=== PATIENT | male | born 1975 | race Caucasian/White ===

== ENCOUNTER 2018-01-18 12:27 | Inpatient (IN) | payer BC, OTHER ==
[~2018-01-18 12:27] MED LIST: ISOVUE-370 76%-LOCM 1 ML ONE
[2018-01-18 12:47] LABS: Hemoglobin 14.2 g/dL (14.0-18.0); Mean Corpuscular HGB CONC 32.2 g/dL (32.0-36.0); Mean Corpuscular Hemoglobin 29.5 pg (27.0-31.0); Mean Corpuscular Volume 91.6 fL (78.0-98.0); Platelet Count 328 thou/uL (130-400); RBC Distribution Width 11.7 % (11.5-14.5); White Blood Cell (WBC) Count 25.7 thou/uL (4.8-10.8)
[2018-01-18 12:52] LABS: INR-International Normal Ratio 1.2; PTT 24.2 SEC (22.9-36.1); Prothrombin Time 14.8 SEC (12.0-14.7)
[2018-01-18] MEDS ORDERED: Fentanyl 100 MCG/2 ML VIAL ONE ×6 (12:54→13:25)
[2018-01-18] MEDS ORDERED: Fentanyl BOLUS 250 ML IVPB PRN ×2 (12:55→14:38)
[2018-01-18 12:58] LABS: ALT (SGPT) 27 U/L (8-55); AST (SGOT) 34 U/L (5-34); Albumin 3.5 g/dL (3.5-5.0); Alkaline Phosphatase 83 U/L (40-150); Anion Gap 13 mmol/L (10-20); BUN (Urea Nitrogen) 21 mg/dL (8.9-20.6); Bilirubin, Total 0.4 mg/dL (0.2-1.2); Calc. Creatinine Clearance 0 mL/min (70-130); Calcium 8.2 mg/dL (7.8-10.44); Carbon Dioxide 17 mmol/L (22-29); Chloride 113 mmol/L (98-107); Estimated GFR-MDRD 61; Globulin 2.5 g/dL (2.4-3.5); Glucose 164 mg/dL (70-105); Potassium 4.4 mmol/L (3.5-5.1); Sodium 139 mmol/L (136-145)
[2018-01-18 13:11] LABS: Band 12 % (5-11); Eosinophils 2 % (0-10); Lymphocytes 9 % (21-51); MDiff Complete? YES; Monocytes 3 % (0-10); Neutrophil 74 % (42-75); PLT Morphology Comment Appears Adequate; RBC Morphology Normal
[2018-01-18] MEDS ORDERED: Norepinephrine 4 MG/4 ML VIAL ONE (13:15)
[2018-01-18] MEDS ORDERED: Vecuronium 10 MG VIAL ONE ×3 (13:16→18:05)
[2018-01-18] MEDS ORDERED: Norepinephrine 4 MG in Dextrose 5% in Water 246 ML IVPB PRN (13:17)
[2018-01-18] MEDS ORDERED: Midazolam HCl 2 mg/2 ml Vial ONE (13:25)
[2018-01-18] MEDS ORDERED: Calcium Chloride 1 GM/10 ML Abboject SYRINGE ONE ×3 (13:50→16:27)
[2018-01-18] MEDS ORDERED: Sodium Bicarb 50 MEQ/50 ML Abboject 8.4% SYRINGE ONE ×2 (13:50→14:00)
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
[2018-01-18] MEDS ORDERED: Neomycin-Polymyxin 1 ML AMP ONE (14:01)
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
[2018-01-18] MEDS ORDERED: Gentamicin 80 MG/2 ML VIAL ONE (14:11)
[2018-01-18] MEDS ORDERED: Dextrose 50% Abboject 50 ML SYRINGE SLOW IVP PRN (14:24)
[2018-01-18] MEDS ORDERED: Dextrose 5% in Water 1,000 ML IV PRN (14:24)
[2018-01-18] MEDS ORDERED: Ondansetron ODT 4 MG TAB PO PRN (14:24)
[2018-01-18] MEDS ORDERED: Ventilator Sedation Protocol 1 EACH FS ONE (14:31)
[2018-01-18] MEDS ORDERED: Propofol BOLUS 1,000 MG/100 ML VIAL IV PRN (14:38)
[2018-01-18] MEDS ORDERED: Lorazepam 2 MG/ML VIAL SLOW IVP PRN (14:38)
[2018-01-18] MEDS ORDERED: Fentanyl CADD 250 ML IVPB SCH (14:38)
[2018-01-18] MEDS ORDERED: fentaNYL Citrate/PF 2,000 MCG in Sodium Chloride 0.9% 60 ML IV SCH (14:38)
[2018-01-18] MEDS ORDERED: DISCONTINUE PREVIOUS NARCOTIC PAIN MEDICATIONS AND BENZODIAZEPINES FS SCH (14:38)
[2018-01-18] MEDS ORDERED: Propofol 1,000 MG/100 ML VIAL IV PRN (14:38)
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
[2018-01-18] MEDS ORDERED: Heparin 5,000 UNITS/ML VIAL ONE (15:55)
[2018-01-18] MEDS ORDERED: Protamine Sulfate 50 MG/5 ML VIAL ONE (16:20)
[2018-01-18] MEDS ORDERED: Heparin 10,000 UNITS/1 ML VIAL ONE (16:20)
[2018-01-18] MEDS ORDERED: Heparin 10,000 UNITS/ 10 ML VIAL ONE (16:27)
[2018-01-18] MEDS ORDERED: PHENYLEPHRINE-NS 100 MCG/ML 10 ML SYRINGE ONE (16:27)
[2018-01-18] MEDS ORDERED: Sodium Bicarb 50 MEQ/50 ML VIAL ONE (16:27)
[2018-01-18] MEDS ORDERED: Propofol 1,000 MG/100 ML VIAL IV ONE (18:46)
[2018-01-18 18:58] LABS: #Lymphocytes 1.6 thou/uL (1.20-3.40); #Monocytes 1.9 thou/uL (0.11-0.59); #Neutrophils 13.7 thou/uL (1.40-6.50); %Basophils 0.1 % (0.0-1.0); %Eosinophils 0.2 % (0.0-10.0); %Lymphocytes 9.3 % (21.0-51.0); %Monocytes 10.9 % (0.0-10.0); %Neutrophils 79.5 % (42.0-75.0); Mean Corpuscular HGB CONC 33.4 g/dL (32.0-36.0); Mean Corpuscular Hemoglobin 29.9 pg (27.0-31.0); Mean Corpuscular Volume 89.4 fL (78.0-98.0); Mean Platelet Volume 7.3 fL (7.4-10.4); Platelet Count 242 thou/uL (130-400); RBC Distribution Width 13.1 % (11.5-14.5); Red Blood Cell (RBC) Count 4.01 mill/uL (4.70-6.10); White Blood Cell (WBC) Count 17.2 thou/uL (4.8-10.8)
[2018-01-18 19:05] LABS: INR-International Normal Ratio 1.2; PTT 27.6 SEC (22.9-36.1); Prothrombin Time 15.3 SEC (12.0-14.7)
[2018-01-18 19:25] LABS: Lactic Acid 6.8 mmol/L (0.5-2.2)
[2018-01-18] MEDS: fentaNYL Citrate/PF 2,000 MCG in Sodium Chloride 0.9% 60 ML IV SCH (19:47)
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
[2018-01-18] MEDS: Lactated Ringer's 1,000 ML IV SCH ×2 (20:01→21:41)
[2018-01-18 20:33] LABS: Actual Bicarbonate (HCO3a) 21.5 mEq/L (22-28); Base Excess (BEa) -4.2 mEq/L (-2.0 to +3.0); CO2 Tension 41.8 mmHg (35.0-45.0); Calcium, Ionized 1.21 mmol/L (1.12-1.30); Carboxyhemoglobin (COHb) 1.1 gm% (0.0-3.0); Hemoglobin (Hb) 12.1 g/dL (14.0-18.0); O2 Tension (PaO2) 89.4 mmHg (80.0-100.0); Potassium - ABG Lab 4.73 mmol/L (3.70-5.30); pH, Arterial 7.33 (7.35-7.45)
[2018-01-18 20:34] LABS: Puncture Site ALINE
[2018-01-18] MEDS: Famotidine/PF 20 mg/2ml Vial SLOW IVP SCH (20:55)
[2018-01-18] MEDS: Ondansetron HCl/PF 4 MG/2 ML Vial IVP PRN (20:55)
[2018-01-18] MEDS ORDERED: Enoxaparin Sodium 30 MG/0.3 ML SYRINGE SC SCH (21:00)
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
[2018-01-18] MEDS: Enoxaparin Sodium 30 MG/0.3 ML SYRINGE SC SCH (23:04)
[2018-01-18] MEDS ORDERED: Lactated Ringer's 500 ML IV SCH (23:59)
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
[2018-01-19] MEDS: Acetaminophen 1,000 MG in Premix Bag 1 BAG IVPB SCH ×2 (00:59→07:51)
[2018-01-19] MEDS: Lactated Ringer's 1,000 ML IV SCH (01:03)
[2018-01-19 04:46] LABS: ALT (SGPT) 45 U/L (8-55); AST (SGOT) 161 U/L (5-34); Alkaline Phosphatase 43 U/L (40-150); Anion Gap 17 mmol/L (10-20); BUN (Urea Nitrogen) 23 mg/dL (8.9-20.6); Bilirubin, Total 1.1 mg/dL (0.2-1.2); Calc. Creatinine Clearance 100 mL/min (70-130); Carbon Dioxide 21 mmol/L (22-29); Chloride 111 mmol/L (98-107); Estimated GFR-MDRD 45; Globulin 1.7 g/dL (2.4-3.5); Glucose 121 mg/dL (70-105); Potassium 4.4 mmol/L (3.5-5.1); Protein, Total 4.7 g/dL (6.0-8.3); Sodium 145 mmol/L (136-145)
[2018-01-19 05:16] LABS: CK (CPK) 11349 U/L (30-200)
[2018-01-19 06:40] LABS: Actual Bicarbonate (HCO3a) 21.8 mEq/L (22-28); Base Excess (BEa) -2.6 mEq/L (-2.0 to +3.0); CO2 Tension 35.9 mmHg (35.0-45.0); Calcium, Ionized 1.13 mmol/L (1.12-1.30); Carboxyhemoglobin (COHb) 0.8 gm% (0.0-3.0); O2 Tension (PaO2) 118.6 mmHg (80.0-100.0); Potassium - ABG Lab 4.56 mmol/L (3.70-5.30)
[2018-01-19 06:41] LABS: ALV-art Gradient 121.725 (0-20); Puncture Site ALINE
[2018-01-19 07:18] LABS: #Lymphocytes 1.6 thou/uL (1.20-3.40); #Monocytes 0.9 thou/uL (0.11-0.59); %Basophils 0.3 % (0.0-1.0); %Eosinophils 0.2 % (0.0-10.0); %Monocytes 8.6 % (0.0-10.0); %Neutrophils 75.8 % (42.0-75.0); Hemoglobin 8.7 g/dL (14.0-18.0); Mean Corpuscular Hemoglobin 29.8 pg (27.0-31.0); Mean Corpuscular Volume 87.6 fL (78.0-98.0); Mean Platelet Volume 7.2 fL (7.4-10.4); Platelet Count 166 thou/uL (130-400); RBC Distribution Width 13.6 % (11.5-14.5); Red Blood Cell (RBC) Count 2.91 mill/uL (4.70-6.10); White Blood Cell (WBC) Count 10.6 thou/uL (4.8-10.8)
[2018-01-19] MEDS: fentaNYL Citrate/PF 2,000 MCG in Sodium Chloride 0.9% 60 ML IV SCH (07:36)
[2018-01-19] MEDS: Famotidine/PF 20 mg/2ml Vial SLOW IVP SCH ×2 (07:51→20:16)
[2018-01-19] MEDS ORDERED: Enoxaparin Sodium 30 MG/0.3 ML SYRINGE SC SCH (09:00)
[2018-01-19] MEDS: Sodium Bicarbonate 150 MEQ in Dextrose 5% in Water 1,000 ML IV SCH ×3 (09:07→23:12)
[2018-01-19] MEDS ORDERED: Albumin 5% 500 ML ONE (09:17)
[2018-01-19] MEDS: Enoxaparin Sodium 30 MG/0.3 ML SYRINGE SC SCH ×2 (09:27→20:28)
[2018-01-19] MEDS ORDERED: diphenhydrAMINE 50 MG/ML VIAL IVP PRN (10:21)
[2018-01-19] MEDS ORDERED: Promethazine HCl 25 MG/ML VIAL IM PRN (10:21)
[2018-01-19] MEDS ORDERED: diphenhydrAMINE 25 MG CAP PO PRN (10:21)
[2018-01-19] MEDS ORDERED: diphenhydrAMINE 50 MG/ML VIAL IM PRN (10:21)
[2018-01-19] MEDS ORDERED: Naloxone HCl 0.4 mg/ml Vial IV PRN (10:21)
[2018-01-19] MEDS ORDERED: Communication Order-Pharmacy FS SCH ×2 (10:30)
[2018-01-19] MEDS: CEFAZOLIN/Water 2 GM/20 ML SYRINGE SLOW IVP SCH ×2 (11:20→20:16)
[2018-01-19] MEDS: Acetaminophen 500 MG TAB PO SCH ×3 (11:20→22:04)
[2018-01-19] MEDS: cefTRIAXone\\ROCEPHIN 2 GM in Sodium Chloride 0.9% 100 ML IVPB SCH (11:21)
[2018-01-19] MEDS: HYDROmorphone 10 mg/100 ml CADD IVPB PRN ×2 (11:28→23:38)
[2018-01-19] MEDS: Ondansetron HCl/PF 4 MG/2 ML Vial IVP PRN (17:42)
[2018-01-20] MEDS: Acetaminophen 500 MG TAB PO SCH ×4 (04:06→23:36)
[2018-01-20] MEDS: CEFAZOLIN/Water 2 GM/20 ML SYRINGE SLOW IVP SCH (04:06)
[2018-01-20] MEDS: Sodium Bicarbonate 150 MEQ in Dextrose 5% in Water 1,000 ML IV SCH (04:11)
[2018-01-20 04:32] LABS: #Lymphocytes 1.4 thou/uL (1.20-3.40); #Monocytes 0.6 thou/uL (0.11-0.59); #Neutrophils 7.3 thou/uL (1.40-6.50); %Basophils 0.3 % (0.0-1.0); %Eosinophils 0.2 % (0.0-10.0); %Lymphocytes 14.9 % (21.0-51.0); %Monocytes 6.4 % (0.0-10.0); %Neutrophils 78.2 % (42.0-75.0); Hemoglobin 7.6 g/dL (14.0-18.0); Mean Corpuscular HGB CONC 33.1 g/dL (32.0-36.0); Mean Corpuscular Hemoglobin 29.8 pg (27.0-31.0); Mean Corpuscular Volume 90.1 fL (78.0-98.0); Mean Platelet Volume 7.3 fL (7.4-10.4); Platelet Count 134 thou/uL (130-400); RBC Distribution Width 13.2 % (11.5-14.5); Red Blood Cell (RBC) Count 2.55 mill/uL (4.70-6.10); White Blood Cell (WBC) Count 9.3 thou/uL (4.8-10.8)
[2018-01-20 04:41] LABS: Anion Gap 11 mmol/L (10-20); BUN (Urea Nitrogen) 15 mg/dL (8.9-20.6); Calc. Creatinine Clearance 138 mL/min (70-130); Calcium 7.9 mg/dL (7.8-10.44); Carbon Dioxide 35 mmol/L (22-29); Chloride 99 mmol/L (98-107); Estimated GFR-MDRD 66; Glucose 145 mg/dL (70-105); Magnesium 1.6 mg/dL (1.6-2.6); Phosphorus 2.3 mg/dL (2.3-4.7); Potassium 3.5 mmol/L (3.5-5.1); Sodium 141 mmol/L (136-145)
[2018-01-20] MEDS ORDERED: Fentanyl 250 MCG/5 ML VIAL ONE (07:32)
[2018-01-20] MEDS ORDERED: Magnesium Sulfate 3 GM in Sodium Chloride 0.9% 100 ML IVPB SCH (08:00)
[2018-01-20] MEDS ORDERED: Lactated Ringer's 1,000 ML IV SCH (08:15)
[2018-01-20] MEDS ORDERED: Potassium Phosphate 30 MMOL in Sodium Chloride 0.9% 500 ML IVPB SCH (09:00)
[2018-01-20] MEDS ORDERED: HYDROmorphone 2 MG/ML VIAL ONE (09:55)
[2018-01-20] MEDS: Sodium Chloride 0.9% 1,000 ML IV SCH ×3 (11:21→20:33)
[2018-01-20] MEDS: Famotidine/PF 20 mg/2ml Vial SLOW IVP SCH ×2 (11:28→20:33)
[2018-01-20] MEDS: Enoxaparin Sodium 30 MG/0.3 ML SYRINGE SC SCH ×2 (11:29→20:33)
[2018-01-20] MEDS ORDERED: Magnesium Sulfate 3 GM, IV Admixture Fee-Chemo 1 UNITS in Sodium Chloride 0.9% 100 ML IVPB SCH (11:30)
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
[2018-01-20] MEDS: cefTRIAXone\\ROCEPHIN 2 GM in Sodium Chloride 0.9% 100 ML IVPB SCH (11:44)
[2018-01-20] MEDS ORDERED: Furosemide 40 MG/4 ML VIAL SLOW IVP SCH (12:15)
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
--- NOTE | 2018-01-20 12:26 | RAD ---
INTRAOPERATIVE FLUOROSOCPIC IMAGES RIGHT TIBIA AND FIBULA: DATE: 01/20/18. HISTORY: Debridement. FINDINGS/IMPRESSION: Two fluoroscopic images of the lower right tibia and fibula are provided. Fluoroscopic guidance was provided for Dr. Song. Fracture deformities of the right tibia and fibula are incompletely imag ed and better evaluated on the study of 01/18/18. Correlation with intraoperative findings is suggest ed. POS: HARISH
[2018-01-20] MEDS ORDERED: Dexamethasone 20 MG/5 ML VIAL ONE (15:49)
[2018-01-20] MEDS ORDERED: Ondansetron HCl/PF 4 MG/2 ML Vial ONE (15:49)
[2018-01-20] MEDS ORDERED: PHENYLEPHRINE-NS 100 MCG/ML 10 ML SYRINGE ONE (15:49)
[2018-01-20] MEDS ORDERED: PROPOFOL 200 MG/20 ML VIAL ONE (15:49)
[2018-01-20] MEDS ORDERED: Lidocaine 1% PF 5 ML VIAL ONE (15:49)
[2018-01-20] MEDS: Ascorbic Acid 500 mg Chewable Tablet PO SCH ×2 (17:04→20:32)
[2018-01-20] MEDS: Ferrous Sulfate 325 MG TAB PO SCH ×2 (17:04→17:08)
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
[2018-01-20] MEDS: HYDROmorphone 10 mg/100 ml CADD IVPB PRN (21:33)
[2018-01-21] MEDS: Sodium Chloride 0.9% 1,000 ML IV SCH ×5 (01:38→22:01)
[2018-01-21] MEDS: Acetaminophen 500 MG TAB PO SCH ×4 (04:23→22:01)
[2018-01-21 04:42] LABS: #Lymphocytes 0.8 thou/uL (1.20-3.40); #Monocytes 0.6 thou/uL (0.11-0.59); #Neutrophils 8.8 thou/uL (1.40-6.50); %Eosinophils 0.1 % (0.0-10.0); %Lymphocytes 7.8 % (21.0-51.0); %Monocytes 5.9 % (0.0-10.0); %Neutrophils 86.2 % (42.0-75.0); Hemoglobin 7.7 g/dL (14.0-18.0); Mean Corpuscular HGB CONC 32.7 g/dL (32.0-36.0); Mean Corpuscular Hemoglobin 29.7 pg (27.0-31.0); Mean Corpuscular Volume 90.7 fL (78.0-98.0); Mean Platelet Volume 7.2 fL (7.4-10.4); PLT Morphology Comment Appears Decreased; Platelet Count 119 thou/uL (130-400); RBC Distribution Width 13.4 % (11.5-14.5); RBC Morphology Normal; Red Blood Cell (RBC) Count 2.58 mill/uL (4.70-6.10); White Blood Cell (WBC) Count 10.2 thou/uL (4.8-10.8)
[2018-01-21 04:45] LABS: Anion Gap 9 mmol/L (10-20); BUN (Urea Nitrogen) 12 mg/dL (8.9-20.6); Calc. Creatinine Clearance 199 mL/min (70-130); Carbon Dioxide 29 mmol/L (22-29); Chloride 105 mmol/L (98-107); Estimated GFR-MDRD Greater than 90; Glucose 116 mg/dL (70-105); Magnesium 2.1 mg/dL (1.6-2.6); Phosphorus 1.7 mg/dL (2.3-4.7); Potassium 3.7 mmol/L (3.5-5.1); Sodium 139 mmol/L (136-145)
[2018-01-21] MEDS ORDERED: Potassium Phosphate 30 MMOL, Magnesium Sulfate 2 GM in Sodium Chloride 0.9% 500 ML IVPB SCH (05:30)
[2018-01-21 06:14] LABS: CK (CPK) 11180 U/L (30-200)
[2018-01-21] MEDS: Ascorbic Acid 500 mg Chewable Tablet PO SCH ×2 (09:40→20:17)
[2018-01-21] MEDS: Ferrous Sulfate 325 MG TAB PO SCH ×2 (09:40→17:37)
[2018-01-21] MEDS: Famotidine/PF 20 mg/2ml Vial SLOW IVP SCH ×2 (09:41→20:18)
[2018-01-21] MEDS: Enoxaparin Sodium 30 MG/0.3 ML SYRINGE SC SCH ×2 (09:41→20:25)
[2018-01-21] MEDS ORDERED: traMADol HCl 50 MG TAB PO PRN (11:27)
[2018-01-21] MEDS ORDERED: Furosemide 20 MG/2 ML VIAL SLOW IVP SCH (11:30)
[2018-01-21] MEDS ORDERED: Polyethylene Glycol 3350 17 GM Packet PO SCH (12:00)
[2018-01-21] MEDS: cefTRIAXone\\ROCEPHIN 2 GM in Sodium Chloride 0.9% 100 ML IVPB SCH (12:23)
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
[2018-01-21] MEDS: Gabapentin 300 MG CAP PO SCH ×2 (15:40→20:17)
[2018-01-21] MEDS: traMADol HCl 50 MG TAB PO PRN (19:33)
[2018-01-21] MEDS: Senokot S 8.6-50 MG TAB PO SCH (20:17)
--- NOTE | 2018-01-21 20:41 | PDOC.GSPN ---
Surgery Progress Note: Subj - Subjective Narrative: Patient feels pretty good overall and is tolerating his diet. No bowel movement since admission but is passing flatus. He has been started on MiraLAX. Medical issues are slowly improving. Surgery Progress Note: Obj - Vital signs Vital signs: Vital Signs - Most Recent Temp Pulse Resp BP Pulse Ox 98.6 F 104 H 20 128/67 96 01/21/18 19:42 01/21/18 19:42 01/21/18 19:42 01/21/18 19:42 01/21/18 19:42 Surgery Progress Note: Results - Labs Result Diagrams: 01/21/18 04:10 01/21/18 04:10 Lab results: Laboratory Results - last 24 hr 01/18/18 12:37 Crossmatch See Detail
[2018-01-22] MEDS: traMADol HCl 50 MG TAB PO PRN ×4 (01:11→20:15)
[2018-01-22] MEDS ORDERED: Furosemide 40 MG/4 ML VIAL SLOW IVP SCH ×2 (04:00→14:00)
[2018-01-22] MEDS: Acetaminophen 500 MG TAB PO SCH ×4 (04:09→22:16)
[2018-01-22] MEDS: Sodium Chloride 0.9% 1,000 ML IV SCH ×4 (04:10→23:50)
[2018-01-22 04:47] LABS: #Lymphocytes 1.3 thou/uL (1.20-3.40); #Monocytes 0.7 thou/uL (0.11-0.59); #Neutrophils 8.1 thou/uL (1.40-6.50); %Basophils 0.3 % (0.0-1.0); %Eosinophils 0.5 % (0.0-10.0); %Lymphocytes 12.7 % (21.0-51.0); %Monocytes 6.6 % (0.0-10.0); %Neutrophils 79.9 % (42.0-75.0); Hemoglobin 8.7 g/dL (14.0-18.0); Mean Corpuscular HGB CONC 32.6 g/dL (32.0-36.0); Mean Corpuscular Hemoglobin 29.7 pg (27.0-31.0); Mean Corpuscular Volume 91.2 fL (78.0-98.0); Mean Platelet Volume 7.2 fL (7.4-10.4); Platelet Count 163 thou/uL (130-400); RBC Distribution Width 13.8 % (11.5-14.5); Red Blood Cell (RBC) Count 2.91 mill/uL (4.70-6.10); White Blood Cell (WBC) Count 10.2 thou/uL (4.8-10.8)
[2018-01-22 05:06] LABS: Anion Gap 12 mmol/L (10-20); BUN (Urea Nitrogen) 13 mg/dL (8.9-20.6); Calc. Creatinine Clearance 210 mL/min (70-130); Calcium 8.4 mg/dL (7.8-10.44); Carbon Dioxide 26 mmol/L (22-29); Chloride 107 mmol/L (98-107); Estimated GFR-MDRD Greater than 90; Glucose 95 mg/dL (70-105); Phosphorus 2.2 mg/dL (2.3-4.7); Potassium 3.7 mmol/L (3.5-5.1); Sodium 141 mmol/L (136-145)
[2018-01-22 05:16] LABS: CK (CPK) 7701 U/L (30-200)
[2018-01-22] MEDS: Polyethylene Glycol 3350 17 GM Packet PO SCH (09:25)
[2018-01-22] MEDS: Gabapentin 300 MG CAP PO SCH ×3 (09:26→20:15)
[2018-01-22] MEDS: Senokot S 8.6-50 MG TAB PO SCH ×2 (09:26→20:15)
[2018-01-22] MEDS: Ascorbic Acid 500 mg Chewable Tablet PO SCH ×2 (09:26→20:15)
[2018-01-22] MEDS: Ferrous Sulfate 325 MG TAB PO SCH ×2 (09:26→17:43)
[2018-01-22] MEDS: Famotidine/PF 20 mg/2ml Vial SLOW IVP SCH ×2 (09:27→20:15)
[2018-01-22] MEDS: Enoxaparin Sodium 30 MG/0.3 ML SYRINGE SC SCH ×2 (09:30→20:15)
[2018-01-22] MEDS ORDERED: Potassium Phosphate 30 MMOL in Sodium Chloride 0.9% 500 ML IVPB SCH (10:00)
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
[2018-01-22] MEDS: Potassium Phosphate 15 MMOL in Sodium Chloride 0.9% 250 ML 250 ML IVPB SCH ×2 (11:43→17:43)
[2018-01-22] MEDS: cefTRIAXone\\ROCEPHIN 2 GM in Sodium Chloride 0.9% 100 ML IVPB SCH (11:43)
[2018-01-22 13:04] VITALS: BMI 40.0
[2018-01-22] MEDS: Ketorolac Tromethamine 30 MG/ML VIAL IVP PRN (22:15)
[2018-01-22] MEDS: Cyclobenzaprine 10 MG TAB PO PRN (22:16)
[2018-01-23] MEDS: traMADol HCl 50 MG TAB PO PRN ×2 (04:14→20:20)
[2018-01-23] MEDS: Acetaminophen 500 MG TAB PO SCH ×4 (04:14→22:09)
[2018-01-23 04:37] LABS: #Eosinphils 0.3 thou/uL (0.0-0.7); #Lymphocytes 1.8 thou/uL (1.20-3.40); #Monocytes 0.8 thou/uL (0.11-0.59); #Neutrophils 7.1 thou/uL (1.40-6.50); %Basophils 0.3 % (0.0-1.0); %Lymphocytes 17.6 % (21.0-51.0); %Monocytes 7.8 % (0.0-10.0); %Neutrophils 71.4 % (42.0-75.0); Hemoglobin 9.4 g/dL (14.0-18.0); Mean Corpuscular HGB CONC 32.8 g/dL (32.0-36.0); Mean Corpuscular Volume 91.3 fL (78.0-98.0); Mean Platelet Volume 6.9 fL (7.4-10.4); Platelet Count 205 thou/uL (130-400); Red Blood Cell (RBC) Count 3.14 mill/uL (4.70-6.10)
[2018-01-23 04:51] LABS: Anion Gap 12 mmol/L (10-20); BUN (Urea Nitrogen) 17 mg/dL (8.9-20.6); Calc. Creatinine Clearance 227 mL/min (70-130); Calcium 8.8 mg/dL (7.8-10.44); Carbon Dioxide 27 mmol/L (22-29); Chloride 106 mmol/L (98-107); Estimated GFR-MDRD Greater than 90; Glucose 90 mg/dL (70-105); Magnesium 1.8 mg/dL (1.6-2.6); Phosphorus 3.8 mg/dL (2.3-4.7); Potassium 3.8 mmol/L (3.5-5.1); Sodium 141 mmol/L (136-145)
[2018-01-23] MEDS: Sodium Chloride 0.9% 1,000 ML IV SCH ×2 (08:46→22:13)
[2018-01-23] MEDS: Famotidine 20 MG TAB PO SCH ×2 (08:47→22:06)
[2018-01-23] MEDS: Gabapentin 300 MG CAP PO SCH ×3 (08:47→22:04)
[2018-01-23] MEDS: Senokot S 8.6-50 MG TAB PO SCH ×2 (08:47→22:08)
[2018-01-23] MEDS: Polyethylene Glycol 3350 17 GM Packet PO SCH (08:47)
[2018-01-23] MEDS: Ferrous Sulfate 325 MG TAB PO SCH ×2 (08:48→17:09)
[2018-01-23] MEDS: Enoxaparin Sodium 30 MG/0.3 ML SYRINGE SC SCH ×2 (08:48→22:13)
[2018-01-23] MEDS: Ascorbic Acid 500 mg Chewable Tablet PO SCH ×2 (08:48→22:06)
[2018-01-23] MEDS ORDERED: Furosemide 40 MG/4 ML VIAL SLOW IVP SCH ×3 (09:00→21:45)
[2018-01-23] MEDS: Ketorolac Tromethamine 30 MG/ML VIAL IVP PRN ×2 (10:05→19:07)
[2018-01-23] MEDS: cefTRIAXone\\ROCEPHIN 2 GM in Sodium Chloride 0.9% 100 ML IVPB SCH (12:03)
[2018-01-23] MEDS ORDERED: Neomycin-Polymyxin 1 ML AMP ONE (12:25)
[2018-01-23] MEDS ORDERED: HYDROmorphone 2 MG/ML VIAL ONE (12:43)
[2018-01-23] MEDS ORDERED: Midazolam HCl 2 mg/2 ml Vial ONE (12:43)
[2018-01-23] MEDS ORDERED: Fentanyl 100 MCG/2 ML VIAL ONE ×3 (12:43→17:49)
[2018-01-23] MEDS ORDERED: Ondansetron HCl/PF 4 MG/2 ML Vial ONE (13:51)
[2018-01-23] MEDS ORDERED: PROPOFOL 200 MG/20 ML VIAL ONE (13:51)
[2018-01-23] MEDS ORDERED: Metoclopramide HCl 10 MG/2 ML VIAL ONE (13:51)
[2018-01-23] MEDS ORDERED: Glycopyrrolate 0.2 MG/ML 5 ML SYRINGE ONE (13:51)
[2018-01-23] MEDS ORDERED: Vecuronium 10 MG VIAL ONE ×2 (13:51→14:24)
[2018-01-23] MEDS ORDERED: Dexamethasone 20 MG/5 ML VIAL ONE (13:51)
[2018-01-23] MEDS ORDERED: Lidocaine 1% PF 5 ML VIAL ONE (13:51)
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
[2018-01-23] MEDS: Furosemide 40 MG/4 ML VIAL SLOW IVP SCH (15:00)
[2018-01-23] MEDS ORDERED: Meperidine HCl/PF 25 MG/ML VIAL SLOW IVP PRN (17:33)
[2018-01-23] MEDS ORDERED: Ondansetron HCl/PF 4 MG/2 ML Vial IVP PRN (17:33)
[2018-01-23] MEDS ORDERED: Morphine Sulfate 2 MG/ML SYRINGE SLOW IVP PRN (17:33)
[2018-01-23] MEDS ORDERED: HYDROmorphone 2 MG/ML VIAL SLOW IVP PRN (17:33)
[2018-01-23] MEDS ORDERED: Promethazine HCl 25 MG/ML VIAL IM PRN (17:33)
[2018-01-23] MEDS ORDERED: Promethazine HCl 25 MG/ML VIAL SLOW IVP PRN (17:33)
[2018-01-23] MEDS ORDERED: Morphine 2 MG/ML SYRINGE SLOW IVP PRN ×2 (19:09→21:43)
[2018-01-23] MEDS: Piperacillin/Tazobactam 3.375 GM in Sodium Chloride 0.9% 100 ML IVPB SCH ×2 (19:10→23:42)
--- NOTE | 2018-01-23 19:26 | RAD ---
INTRAOPERATIVE FLUOROSCOPY 01/23/18 HISTORY: Fracture. EXPOSURE: 72.8 seconds. 4.62 mGy. FINDINGS: Eight fluoroscopic views demonstrate internal fixation hardware traversing the tibia with two proxima l and a single distal interlocking screw. Fracture lucencies are identified. Alignment is near anatom ic. Fibula fractures are noted. IMPRESSION: Fluoroscopy as above. POS: PPP
--- NOTE | 2018-01-23 19:28 | RAD ---
INTRAOPERATIVE FLUOROSCOPY 01/23/18 HISTORY: Fracture. COMPARISON: None. FINDINGS: Six fluoroscopic views demonstrate internal fixation hardware traversing the tibia and fibula. Fractu re lucencies are noted. Alignment is near anatomic. IMPRESSION: Fluoroscopy as above. POS: PPP
[2018-01-23] MEDS: Cyclobenzaprine 10 MG TAB PO PRN (20:19)
[2018-01-23] MEDS ORDERED: Ketorolac Tromethamine 30 MG/ML VIAL IVP SCH (21:45)
[2018-01-23] MEDS ORDERED: traMADol HCl 50 MG TAB PO SCH (22:00)
[2018-01-23] MEDS ORDERED: Morphine 2 MG/ML SYRINGE SLOW IVP SCH (22:00)
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
[2018-01-23] MEDS: Ketorolac Tromethamine 30 MG/ML VIAL IVP SCH (23:44)
[2018-01-24] MEDS: traMADol HCl 50 MG TAB PO SCH ×4 (02:02→20:11)
[2018-01-24] MEDS: Acetaminophen 500 MG TAB PO SCH (04:10)
[2018-01-24] MEDS: Sodium Chloride 0.9% 1,000 ML IV SCH (05:31)
[2018-01-24] MEDS: Piperacillin/Tazobactam 3.375 GM in Sodium Chloride 0.9% 100 ML IVPB SCH ×3 (05:32→18:03)
[2018-01-24] MEDS: Ketorolac Tromethamine 30 MG/ML VIAL IVP SCH ×3 (05:33→18:04)
[2018-01-24] MEDS: Furosemide 40 MG/4 ML VIAL SLOW IVP SCH (05:33)
[2018-01-24 06:21] LABS: Anion Gap 10 mmol/L (10-20); BUN (Urea Nitrogen) 21 mg/dL (8.9-20.6); CK (CPK) 3442 U/L (30-200); Calc. Creatinine Clearance 227 mL/min (70-130); Calcium 8.3 mg/dL (7.8-10.44); Carbon Dioxide 27 mmol/L (22-29); Chloride 105 mmol/L (98-107); Estimated GFR-MDRD Greater than 90; Glucose 115 mg/dL (70-105); Phosphorus 3.8 mg/dL (2.3-4.7); Potassium 4.3 mmol/L (3.5-5.1); Sodium 138 mmol/L (136-145)
[2018-01-24 06:33] LABS: Hypochromia SLIGHT = 6-15 cells (100X) (0-5/hpf); Lymphocytes 7 % (21-51); MDiff Complete? YES; Mean Corpuscular HGB CONC 33.1 g/dL (32.0-36.0); Mean Corpuscular Hemoglobin 30.2 pg (27.0-31.0); Mean Corpuscular Volume 91.2 fL (78.0-98.0); Monocytes 9 % (0-10); Neutrophil 84 % (42-75); PLT Morphology Comment Appears Adequate; Platelet Count 241 thou/uL (130-400); RBC Distribution Width 13.8 % (11.5-14.5); Red Blood Cell (RBC) Count 2.64 mill/uL (4.70-6.10); White Blood Cell (WBC) Count 10.1 thou/uL (4.8-10.8)
[2018-01-24] MEDS ORDERED: Magnesium Citrate 300 ML BOT PO SCH (08:15)
[2018-01-24] MEDS: Famotidine 20 MG TAB PO SCH ×2 (08:58→20:12)
[2018-01-24] MEDS: Senokot S 8.6-50 MG TAB PO SCH ×2 (08:59→20:19)
[2018-01-24] MEDS: Gabapentin 300 MG CAP PO SCH ×3 (08:59→20:13)
[2018-01-24] MEDS: Ascorbic Acid 500 mg Chewable Tablet PO SCH ×2 (08:59→20:12)
[2018-01-24] MEDS: Cyclobenzaprine 10 MG TAB PO PRN (08:59)
[2018-01-24] MEDS: Ferrous Sulfate 325 MG TAB PO SCH ×2 (09:02→18:03)
[2018-01-24] MEDS: Enoxaparin Sodium 30 MG/0.3 ML SYRINGE SC SCH ×2 (09:02→20:13)
[2018-01-24] MEDS: Polyethylene Glycol 3350 17 GM Packet PO SCH (09:04)
[2018-01-24] MEDS ORDERED: Morphine 4 MG/ML VIAL ONE (09:07)
[2018-01-24] MEDS ORDERED: Acetaminophen 325 MG TAB PO PRN (10:00)
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
[2018-01-24] MEDS: HYDROcodone/Acetaminophen 10/325 mg Tablet PO PRN (12:29)
[2018-01-24] MEDS ORDERED: Morphine 4 MG/ML VIAL SLOW IVP SCH (12:30)
[2018-01-24] MEDS: cefTRIAXone\\ROCEPHIN 2 GM in Sodium Chloride 0.9% 100 ML IVPB SCH (12:36)
[2018-01-25] MEDS: Piperacillin/Tazobactam 3.375 GM in Sodium Chloride 0.9% 100 ML IVPB SCH ×3 (00:02→12:13)
[2018-01-25] MEDS: Ketorolac Tromethamine 30 MG/ML VIAL IVP SCH ×4 (00:02→18:09)
[2018-01-25] MEDS: traMADol HCl 50 MG TAB PO SCH ×4 (02:21→20:14)
[2018-01-25 06:44] LABS: #Basophils 0.1 thou/uL (0.0-0.2); #Eosinphils 0.5 thou/uL (0.0-0.7); #Lymphocytes 1.9 thou/uL (1.20-3.40); #Monocytes 1.1 thou/uL (0.11-0.59); #Neutrophils 7.5 thou/uL (1.40-6.50); %Basophils 0.5 % (0.0-1.0); %Eosinophils 4.2 % (0.0-10.0); %Monocytes 9.8 % (0.0-10.0); %Neutrophils 68.4 % (42.0-75.0); Hemoglobin 7.5 g/dL (14.0-18.0); Mean Corpuscular HGB CONC 31.9 g/dL (32.0-36.0); Mean Corpuscular Hemoglobin 29.1 pg (27.0-31.0); Mean Corpuscular Volume 91.3 fL (78.0-98.0); Mean Platelet Volume 6.7 fL (7.4-10.4); Platelet Count 302 thou/uL (130-400); Red Blood Cell (RBC) Count 2.57 mill/uL (4.70-6.10); White Blood Cell (WBC) Count 10.9 thou/uL (4.8-10.8)
[2018-01-25 06:56] LABS: Anion Gap 12 mmol/L (10-20); BUN (Urea Nitrogen) 23 mg/dL (8.9-20.6); Calc. Creatinine Clearance 206 mL/min (70-130); Calcium 8.2 mg/dL (7.8-10.44); Carbon Dioxide 26 mmol/L (22-29); Chloride 105 mmol/L (98-107); Estimated GFR-MDRD Greater than 90; Glucose 92 mg/dL (70-105); Magnesium 1.9 mg/dL (1.6-2.6); Phosphorus 3.2 mg/dL (2.3-4.7); Potassium 3.6 mmol/L (3.5-5.1); Sodium 139 mmol/L (136-145)
[2018-01-25] MEDS ORDERED: Tamsulosin HCl 0.4 MG CAP PO SCH (07:00)
[2018-01-25] MEDS: Enoxaparin Sodium 30 MG/0.3 ML SYRINGE SC SCH ×2 (08:04→20:26)
[2018-01-25] MEDS: Ascorbic Acid 500 mg Chewable Tablet PO SCH ×2 (08:05→20:16)
[2018-01-25] MEDS: Senokot S 8.6-50 MG TAB PO SCH ×2 (08:05→20:17)
[2018-01-25] MEDS: Famotidine 20 MG TAB PO SCH ×2 (08:05→20:17)
[2018-01-25] MEDS: Ferrous Sulfate 325 MG TAB PO SCH ×2 (08:05→18:09)
[2018-01-25] MEDS: Gabapentin 300 MG CAP PO SCH ×3 (08:05→20:17)
[2018-01-25] MEDS: Polyethylene Glycol 3350 17 GM Packet PO SCH (08:10)
[2018-01-25] MEDS: HYDROcodone/Acetaminophen 10/325 mg Tablet PO PRN (12:13)
[2018-01-25] MEDS: cefTRIAXone\\ROCEPHIN 2 GM in Sodium Chloride 0.9% 100 ML IVPB SCH (13:00)
[2018-01-25] MEDS: Cyclobenzaprine 10 MG TAB PO PRN (13:00)
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
[2018-01-26] MEDS: Ketorolac Tromethamine 30 MG/ML VIAL IVP SCH ×3 (00:35→11:22)
[2018-01-26] MEDS: traMADol HCl 50 MG TAB PO SCH ×4 (02:29→20:55)
[2018-01-26] MEDS: Ferrous Sulfate 325 MG TAB PO SCH ×2 (08:19→16:23)
[2018-01-26 08:28] LABS: #Eosinphils 0.4 thou/uL (0.0-0.7); #Lymphocytes 1.7 thou/uL (1.20-3.40); #Monocytes 0.9 thou/uL (0.11-0.59); #Neutrophils 7.7 thou/uL (1.40-6.50); %Basophils 0.4 % (0.0-1.0); %Eosinophils 3.8 % (0.0-10.0); %Lymphocytes 15.7 % (21.0-51.0); %Monocytes 8.6 % (0.0-10.0); %Neutrophils 71.5 % (42.0-75.0); Hemoglobin 7.5 g/dL (14.0-18.0); Mean Corpuscular HGB CONC 32.6 g/dL (32.0-36.0); Mean Corpuscular Hemoglobin 29.9 pg (27.0-31.0); Mean Corpuscular Volume 91.7 fL (78.0-98.0); Mean Platelet Volume 6.7 fL (7.4-10.4); Platelet Count 370 thou/uL (130-400); RBC Distribution Width 13.8 % (11.5-14.5); Red Blood Cell (RBC) Count 2.51 mill/uL (4.70-6.10); White Blood Cell (WBC) Count 10.8 thou/uL (4.8-10.8)
[2018-01-26] MEDS: Famotidine 20 MG TAB PO SCH ×2 (09:01→20:56)
[2018-01-26] MEDS: Gabapentin 300 MG CAP PO SCH ×3 (09:01→20:56)
[2018-01-26] MEDS: Polyethylene Glycol 3350 17 GM Packet PO SCH (09:01)
[2018-01-26] MEDS: Ascorbic Acid 500 mg Chewable Tablet PO SCH ×2 (09:01→20:56)
[2018-01-26] MEDS: Enoxaparin Sodium 30 MG/0.3 ML SYRINGE SC SCH ×2 (09:01→21:07)
[2018-01-26] MEDS: Senokot S 8.6-50 MG TAB PO SCH ×2 (09:02→22:35)
[2018-01-26] MEDS: cefTRIAXone\\ROCEPHIN 2 GM in Sodium Chloride 0.9% 100 ML IVPB SCH (12:44)
[2018-01-26] MEDS: Ibuprofen 600 MG TAB PO SCH ×2 (13:49→21:11)
[2018-01-26] MEDS: HYDROcodone/Acetaminophen 10/325 mg Tablet PO PRN (13:50)
[2018-01-26] MEDS: Acetaminophen 325 MG TAB PO SCH ×2 (16:23→20:58)
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
[2018-01-27] MEDS: traMADol HCl 50 MG TAB PO SCH ×4 (03:16→21:12)
[2018-01-27] MEDS: Acetaminophen 325 MG TAB PO SCH ×4 (03:18→22:04)
[2018-01-27] MEDS: Ibuprofen 600 MG TAB PO SCH ×3 (05:05→22:04)
[2018-01-27 06:14] LABS: Anion Gap 10 mmol/L (10-20); BUN (Urea Nitrogen) 19 mg/dL (8.9-20.6); Calc. Creatinine Clearance 245 mL/min (70-130); Calcium 8.6 mg/dL (7.8-10.44); Carbon Dioxide 24 mmol/L (22-29); Chloride 106 mmol/L (98-107); Estimated GFR-MDRD Greater than 90; Glucose 93 mg/dL (70-105); Magnesium 1.8 mg/dL (1.6-2.6); Phosphorus 3.9 mg/dL (2.3-4.7); Potassium 4.3 mmol/L (3.5-5.1); Sodium 136 mmol/L (136-145)
[2018-01-27 08:09] LABS: #Eosinphils 0.5 thou/uL (0.0-0.7); #Lymphocytes 1.5 thou/uL (1.20-3.40); #Neutrophils 12.6 thou/uL (1.40-6.50); %Basophils 0.1 % (0.0-1.0); %Eosinophils 3.3 % (0.0-10.0); %Lymphocytes 9.7 % (21.0-51.0); %Monocytes 6.6 % (0.0-10.0); %Neutrophils 80.3 % (42.0-75.0); Hemoglobin 8.3 g/dL (14.0-18.0); Mean Corpuscular HGB CONC 30.9 g/dL (32.0-36.0); Mean Corpuscular Hemoglobin 28.5 pg (27.0-31.0); Mean Corpuscular Volume 92.1 fL (78.0-98.0); Mean Platelet Volume 6.7 fL (7.4-10.4); Platelet Count 503 thou/uL (130-400); Red Blood Cell (RBC) Count 2.92 mill/uL (4.70-6.10); White Blood Cell (WBC) Count 15.6 thou/uL (4.8-10.8)
[2018-01-27] MEDS: Ferrous Sulfate 325 MG TAB PO SCH ×2 (08:22→17:28)
[2018-01-27] MEDS: Senokot S 8.6-50 MG TAB PO SCH ×2 (08:25→21:13)
[2018-01-27] MEDS: Ascorbic Acid 500 mg Chewable Tablet PO SCH ×2 (08:25→21:12)
[2018-01-27] MEDS: Famotidine 20 MG TAB PO SCH ×2 (08:25→21:12)
[2018-01-27] MEDS: Polyethylene Glycol 3350 17 GM Packet PO SCH (08:26)
[2018-01-27] MEDS: Gabapentin 300 MG CAP PO SCH ×3 (08:26→21:12)
[2018-01-27] MEDS: Enoxaparin Sodium 30 MG/0.3 ML SYRINGE SC SCH ×2 (08:27→21:13)
[2018-01-27] MEDS ORDERED: Tamsulosin HCl 0.4 MG CAP PO SCH (10:15)
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
[2018-01-28] MEDS: traMADol HCl 50 MG TAB PO SCH ×4 (02:06→21:03)
[2018-01-28] MEDS: Acetaminophen 325 MG TAB PO SCH ×4 (03:47→21:02)
[2018-01-28] MEDS: Ibuprofen 600 MG TAB PO SCH ×3 (05:27→21:03)
[2018-01-28 05:48] LABS: #Eosinphils 0.5 thou/uL (0.0-0.7); #Lymphocytes 1.7 thou/uL (1.20-3.40); #Neutrophils 13.1 thou/uL (1.40-6.50); %Basophils 0.2 % (0.0-1.0); %Eosinophils 2.9 % (0.0-10.0); %Lymphocytes 10.2 % (21.0-51.0); %Neutrophils 80.9 % (42.0-75.0); Hemoglobin 7.9 g/dL (14.0-18.0); Mean Corpuscular HGB CONC 30.6 g/dL (32.0-36.0); Mean Corpuscular Hemoglobin 28.1 pg (27.0-31.0); Mean Corpuscular Volume 91.7 fL (78.0-98.0); Mean Platelet Volume 6.6 fL (7.4-10.4); Platelet Count 594 thou/uL (130-400); RBC Distribution Width 13.9 % (11.5-14.5); White Blood Cell (WBC) Count 16.2 thou/uL (4.8-10.8)
[2018-01-28] MEDS: Ferrous Sulfate 325 MG TAB PO SCH ×2 (08:05→16:42)
[2018-01-28] MEDS: Famotidine 20 MG TAB PO SCH ×2 (08:07→21:02)
[2018-01-28] MEDS: Ascorbic Acid 500 mg Chewable Tablet PO SCH ×2 (08:07→21:03)
[2018-01-28] MEDS: Tamsulosin HCl 0.4 MG CAP PO SCH (08:08)
[2018-01-28] MEDS: Nitrofurantoin Monohyd/M-Cryst 100 MG CAP PO SCH (08:08)
[2018-01-28] MEDS: Gabapentin 300 MG CAP PO SCH ×3 (08:08→21:05)
[2018-01-28] MEDS: Enoxaparin Sodium 30 MG/0.3 ML SYRINGE SC SCH ×2 (08:09→21:02)
[2018-01-28] MEDS: Polyethylene Glycol 3350 17 GM Packet PO SCH (08:09)
[2018-01-28] MEDS: Senokot S 8.6-50 MG TAB PO SCH ×2 (08:09→22:29)
[2018-01-28 15:26] LABS: Bilirubin Negative (Negative); Blood, Urine Trace (Negative); Clarity CLEAR (Clear); Glucose, Urine (Dipstick) Negative (Negative); Leukocyte Negative (Negative); Nitrite Negative (Negative); Protein, Urine (Dipstick) Negative (Neg-Trace); Specific Gravity, Urine 1.012 (1.002-1.036); Urobilinogen 0.2 mg/dL (0.2-1.0); pH, Urine 7.5 (5.0-9.0)
[2018-01-28 15:28] LABS: Bacteria/HPF None Seen HPF (None Seen); Hyaline Casts/LPF 0-3 HYALINE CAST LPF (0-3 Hyaline); Squamous Epithelial None Seen HPF (0-3); WBC/HPF 0-3 HPF (0-3)
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
[2018-01-28] MEDS ORDERED: traMADol HCl 50 MG TAB PO SCH (21:45)
[2018-01-29] MEDS: traMADol HCl 50 MG TAB PO SCH ×4 (03:01→21:36)
[2018-01-29] MEDS: Acetaminophen 325 MG TAB PO SCH ×4 (03:01→21:35)
[2018-01-29 05:33] LABS: #Eosinphils 0.5 thou/uL (0.0-0.7); #Lymphocytes 1.5 thou/uL (1.20-3.40); #Monocytes 1.1 thou/uL (0.11-0.59); #Neutrophils 11.9 thou/uL (1.40-6.50); %Basophils 0.2 % (0.0-1.0); %Eosinophils 3.6 % (0.0-10.0); %Lymphocytes 9.7 % (21.0-51.0); %Monocytes 7.1 % (0.0-10.0); %Neutrophils 79.4 % (42.0-75.0); Mean Corpuscular HGB CONC 31.1 g/dL (32.0-36.0); Mean Corpuscular Hemoglobin 28.6 pg (27.0-31.0); Mean Corpuscular Volume 91.7 fL (78.0-98.0); Mean Platelet Volume 6.4 fL (7.4-10.4); Platelet Count 636 thou/uL (130-400); Red Blood Cell (RBC) Count 2.79 mill/uL (4.70-6.10)
[2018-01-29 05:42] LABS: Anion Gap 13 mmol/L (10-20); BUN (Urea Nitrogen) 16 mg/dL (8.9-20.6); Calc. Creatinine Clearance 238 mL/min (70-130); Calcium 8.7 mg/dL (7.8-10.44); Carbon Dioxide 22 mmol/L (22-29); Chloride 105 mmol/L (98-107); Estimated GFR-MDRD Greater than 90; Glucose 97 mg/dL (70-105); Magnesium 1.8 mg/dL (1.6-2.6); Potassium 4.4 mmol/L (3.5-5.1); Sodium 136 mmol/L (136-145)
[2018-01-29] MEDS: Ibuprofen 600 MG TAB PO SCH ×3 (06:12→21:38)
[2018-01-29] MEDS: Ferrous Sulfate 325 MG TAB PO SCH ×2 (08:26→16:42)
[2018-01-29] MEDS: Enoxaparin Sodium 30 MG/0.3 ML SYRINGE SC SCH ×2 (08:28→21:35)
[2018-01-29] MEDS: Nitrofurantoin Monohyd/M-Cryst 100 MG CAP PO SCH (08:28)
[2018-01-29] MEDS: Gabapentin 300 MG CAP PO SCH ×3 (08:28→21:36)
[2018-01-29] MEDS: Famotidine 20 MG TAB PO SCH ×2 (08:28→21:36)
[2018-01-29] MEDS: Ascorbic Acid 500 mg Chewable Tablet PO SCH ×2 (08:28→21:38)
[2018-01-29] MEDS: Tamsulosin HCl 0.4 MG CAP PO SCH (08:28)
[2018-01-29] MEDS: Senokot S 8.6-50 MG TAB PO SCH ×2 (08:29→21:39)
[2018-01-29] MEDS: Polyethylene Glycol 3350 17 GM Packet PO SCH (08:29)
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
[2018-01-29] MEDS: HYDROcodone/Acetaminophen 10/325 mg Tablet PO PRN (09:13)
[2018-01-29] MEDS ORDERED: Fentanyl 100 MCG/2 ML VIAL SLOW IVP PRN (13:02)
[2018-01-29] MEDS: Fentanyl 100 MCG/2 ML VIAL SLOW IVP SCH ×2 (13:11→13:55)
--- NOTE | 2018-01-29 20:31 | PRG ---
DATE OF SERVICE: 01/29/2018 SUBJECTIVE: Faizan Quintana is doing well today. Wounds look good. What was thought to be nonviable, possibly now is improved. Pictures have been taken by Orthopedics to share with Plastic Surgery. Th e patient has been moving his leg. Feeling better. OBJECTIVE: VITAL SIGNS: Temperature 98.4 degrees, heart rate 90, respiratory rate 18, blood pressure 115/69. LUNGS: Clear to auscultation. CARDIAC: Regular rate and rhythm without murmur or gallop. ABDOMEN: Soft and nontender. LABORATORY DATA: White count 15, hemoglobin 8. Basic metabolic profile unremarkable. ASSESSMENT AND PLAN: Doing well. Soft tissue injuries in left leg are improved. Await Plastic Surg andrew's opinion. The patient may able to be transferred to rehab soon with outpatient observation of s oft tissue status.
[2018-01-30] MEDS: traMADol HCl 50 MG TAB PO SCH ×4 (01:55→20:14)
[2018-01-30] MEDS: Acetaminophen 325 MG TAB PO SCH ×4 (04:53→21:03)
[2018-01-30] MEDS: Ibuprofen 600 MG TAB PO SCH ×3 (05:00→21:03)
[2018-01-30 06:43] LABS: Hemoglobin 7.9 g/dL (14.0-18.0); Mean Corpuscular HGB CONC 31.9 g/dL (32.0-36.0); Mean Corpuscular Hemoglobin 28.9 pg (27.0-31.0); Mean Corpuscular Volume 90.7 fL (78.0-98.0); Mean Platelet Volume 6.1 fL (7.4-10.4); Platelet Count 723 thou/uL (130-400); RBC Distribution Width 13.9 % (11.5-14.5); Red Blood Cell (RBC) Count 2.73 mill/uL (4.70-6.10); White Blood Cell (WBC) Count 14.5 thou/uL (4.8-10.8)
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
[2018-01-30 07:28] LABS: Band 12 % (5-11); Eosinophils 3 % (0-10); Lymphocytes 15 % (21-51); MDiff Complete? YES; Metamyelocyte 3 % (0-0); Monocytes 6 % (0-10); Neutrophil 59 % (42-75); PLT Morphology Comment Appears Increased; Polychromasia SLIGHT = 2-3 cells (100X) (0-2/hpf); Reactive Lymphocytes 2 % (0-10)
[2018-01-30] MEDS: Gabapentin 300 MG CAP PO SCH ×3 (08:14→20:15)
[2018-01-30] MEDS: Tamsulosin HCl 0.4 MG CAP PO SCH (08:15)
[2018-01-30] MEDS: Polyethylene Glycol 3350 17 GM Packet PO SCH (08:15)
[2018-01-30] MEDS: Ascorbic Acid 500 mg Chewable Tablet PO SCH ×2 (08:15→20:15)
[2018-01-30] MEDS: Nitrofurantoin Monohyd/M-Cryst 100 MG CAP PO SCH (08:15)
[2018-01-30] MEDS: Famotidine 20 MG TAB PO SCH ×2 (08:16→20:14)
[2018-01-30] MEDS: Ferrous Sulfate 325 MG TAB PO SCH ×2 (08:16→17:27)
[2018-01-30] MEDS: Senokot S 8.6-50 MG TAB PO SCH ×2 (08:16→20:15)
[2018-01-30] MEDS: Enoxaparin Sodium 30 MG/0.3 ML SYRINGE SC SCH ×2 (08:16→20:13)
[2018-01-30] MEDS: Aspirin 325 MG TAB PO SCH (08:40)
[2018-01-30] MEDS: Zinc Sulfate 220 MG CAP PO SCH (08:45)
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
[2018-01-31] MEDS: traMADol HCl 50 MG TAB PO SCH ×4 (02:32→19:58)
[2018-01-31] MEDS: Acetaminophen 325 MG TAB PO SCH ×3 (04:51→15:43)
[2018-01-31] MEDS: Ibuprofen 600 MG TAB PO SCH ×2 (05:00→13:22)
[2018-01-31] MEDS: HYDROcodone/Acetaminophen 10/325 mg Tablet PO PRN ×2 (05:47→17:10)
[2018-01-31 06:19] LABS: Band 11 % (5-11); Eosinophils 3 % (0-10); Hemoglobin 7.8 g/dL (14.0-18.0); Lymphocytes 14 % (21-51); MDiff Complete? YES; Mean Corpuscular HGB CONC 31.4 g/dL (32.0-36.0); Mean Corpuscular Hemoglobin 28.8 pg (27.0-31.0); Mean Corpuscular Volume 91.6 fL (78.0-98.0); Mean Platelet Volume 6.4 fL (7.4-10.4); Metamyelocyte 1 % (0-0); Monocytes 7 % (0-10); Neutrophil 64 % (42-75); Platelet Count 789 thou/uL (130-400); RBC Distribution Width 14.1 % (11.5-14.5); Red Blood Cell (RBC) Count 2.72 mill/uL (4.70-6.10); White Blood Cell (WBC) Count 12.3 thou/uL (4.8-10.8)
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
[2018-01-31] MEDS ORDERED: hydrOXYzine 25 MG/ML VIAL IM PRN (08:08)
[2018-01-31] MEDS: Ferrous Sulfate 325 MG TAB PO SCH ×2 (08:16→17:12)
[2018-01-31] MEDS ORDERED: diphenhydrAMINE 50 MG CAP PO PRN (08:17)
[2018-01-31] MEDS: Aspirin 325 MG TAB PO SCH (09:48)
[2018-01-31] MEDS: Tamsulosin HCl 0.4 MG CAP PO SCH (09:48)
[2018-01-31] MEDS: Polyethylene Glycol 3350 17 GM Packet PO SCH (09:48)
[2018-01-31] MEDS: Zinc Sulfate 220 MG CAP PO SCH (09:48)
[2018-01-31] MEDS: Gabapentin 300 MG CAP PO SCH ×3 (09:48→19:59)
[2018-01-31] MEDS: Ascorbic Acid 500 mg Chewable Tablet PO SCH ×2 (09:49→19:59)
[2018-01-31] MEDS: Nitrofurantoin Monohyd/M-Cryst 100 MG CAP PO SCH (09:49)
[2018-01-31] MEDS: Famotidine 20 MG TAB PO SCH ×2 (09:49→19:59)
[2018-01-31] MEDS: Senokot S 8.6-50 MG TAB PO SCH ×2 (09:49→19:59)
[2018-01-31] MEDS: Enoxaparin Sodium 30 MG/0.3 ML SYRINGE SC SCH ×2 (10:09→19:59)
[2018-01-31 10:35] LABS: Actual Bicarbonate (HCO3a) 22.5 mEq/L (22-28); Base Excess (BEa) -2.7 mEq/L (-2.0 to +3.0); CO2 Tension 40.9 mmHg (35.0-45.0); Calcium, Ionized 1.31 mmol/L (1.12-1.30); Carboxyhemoglobin (COHb) 0.5 gm% (0.0-3.0); Hemoglobin (Hb) 12.2 g/dL (14.0-18.0); O2 Tension (PaO2) 318.9 mmHg (80.0-100.0); Potassium - ABG Lab 4.31 mmol/L (3.70-5.30); Puncture Site ALINE; pH, Arterial 7.36 (7.35-7.45)
[2018-01-31 10:36] LABS: Analyzer IN Cardio OR; Base Excess (BEa) -6.7 mEq/L (-2.0 to +3.0); CO2 Tension 44.8 mmHg (35.0-45.0); Calcium, Ionized 1.82 mmol/L (1.12-1.30); Carboxyhemoglobin (COHb) 0.3 gm% (0.0-3.0); Hemoglobin (Hb) 11.3 g/dL (14.0-18.0); O2 Tension (PaO2) 184.7 mmHg (80.0-100.0); Potassium - ABG Lab 4.58 mmol/L (3.70-5.30); pH, Arterial 7.27 (7.35-7.45)
[2018-01-31 10:36] LABS: Actual Bicarbonate (HCO3a) 20.6 mEq/L (22-28); Analyzer IN Cardio OR; CO2 Tension 40.1 mmHg (35.0-45.0); Calcium, Ionized 1.36 mmol/L (1.12-1.30); Carboxyhemoglobin (COHb) 0.3 gm% (0.0-3.0); Hemoglobin (Hb) 11.7 g/dL (14.0-18.0); O2 Tension (PaO2) 195.8 mmHg (80.0-100.0); Potassium - ABG Lab 4.01 mmol/L (3.70-5.30); pH, Arterial 7.33 (7.35-7.45)
[2018-01-31 10:40] LABS: Puncture Site ALINE
[2018-01-31 10:41] LABS: Puncture Site ALINE
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
[2018-01-31 20:40] VITALS: BP 117/65; TEMP 98.4
== END 2018-01-31 20:50 | disposition short-term general hospital (02) | DRG 957 ==
LOC: ERS 12:27 → SDC/OP 13:30 → CCU 13:35 → SURG A 01-21 13:28
PROVIDERS: ADMIT Surgery; ATTEND Surgery
PROC: 05H633Z Insertion of Infusion Device into Left Subclavian Vein, Percutaneous Approach (ICD-10-PCS; principal; 2018-01-18)
PROC: 0SBD4ZZ Excision of Left Knee Joint, Percutaneous Endoscopic Approach (ICD-10-PCS; 2018-01-18)
PROC: 0SJD0ZZ Inspection of Left Knee Joint, Open Approach (ICD-10-PCS; 2018-01-18)
PROC: 0QSL05Z Reposition Right Tarsal with External Fixation Device, Open Approach (ICD-10-PCS; 2018-01-18)
PROC: 0QSH05Z Reposition Left Tibia with External Fixation Device, Open Approach (ICD-10-PCS; 2018-01-18)
PROC: 30233N1 Transfusion of Nonautologous Red Blood Cells into Peripheral Vein, Percutaneous Approach (ICD-10-PCS; 2018-01-18)
DX: S82.202A Unspecified fracture of shaft of left tibia, initial encounter for closed fracture (principal); S85.002A Unspecified injury of popliteal artery, left leg, initial encounter; J96.01 Acute respiratory failure with hypoxia; S14.3XXA Injury of brachial plexus, initial encounter; R57.8 Other shock; S06.0X9A Concussion with loss of consciousness of unspecified duration, initial encounter; S82.201A Unspecified fracture of shaft of right tibia, initial encounter for closed fracture; D62 Acute posthemorrhagic anemia; E87.2 Acidosis; M62.82 Rhabdomyolysis; N17.9 Acute kidney failure, unspecified; S82.402A Unspecified fracture of shaft of left fibula, initial encounter for closed fracture; S82.401A Unspecified fracture of shaft of right fibula, initial encounter for closed fracture; V09.20XA Pedestrian injured in traffic accident involving unspecified motor vehicles, initial encounter; S43.004A Unspecified dislocation of right shoulder joint, initial encounter; S01.81XA Laceration without foreign body of other part of head, initial encounter; S81.819A Laceration without foreign body, unspecified lower leg, initial encounter; R33.9 Retention of urine, unspecified; E87.70 Fluid overload, unspecified
CPT/HCPCS: 27752; 31500; 36415; 36416; 36430; 36556; 70450; 71045; 71260; 72125; 74177; 76001; 80048; 80053; 81003; 81015; 82150; 82550; 82805; 83605; 83735; 84100; 85007; 85025; 85027; 85610; 85730; 86850; 86900; 86901; 87040; 87086; 94002; 94003; 94640; 96374; 96375; 96376; 99183; C1713; C1769; G0390; G8981-GP-CM; G8982-GP-CK; G8987-GO-CM; G8988-GO-CJ; J0131; J0696; J1100; J1170; J1580; J1644; J1650; J1885; J1940; J2001; J2175; J2250; J2270; J2370; J2405; J2543; J2704; J2720; J2765; J3010; J3370; J3475; J7050; J7070; J7620; P9016; P9035; P9045; P9048; P9059; S0028

== ENCOUNTER 2020-01-22 07:46 | Outpatient (CLI) | payer OTHER | END 2020-01-22 07:47 | disposition home or self-care (01) | PROVIDERS: ATTEND Family Medicine | DX: S43.004D Unspecified dislocation of right shoulder joint, subsequent encounter (principal); S89.92XD Unspecified injury of left lower leg, subsequent encounter; S89.91XD Unspecified injury of right lower leg, subsequent encounter; Z98.890 Other specified postprocedural states ==